=== PATIENT | male | born 1980 | race Caucasian/White ===

== ENCOUNTER 2017-01-21 05:12 | Emergency (ER) | payer BC ==
--- NOTE | 2017-01-21 05:22 | CPEKG ---
Heart Rate: 55 RR Interval: 1091 P-R Interval: 156 QRSD Interval: 94 QT Interval: 432 QTC Interval: 414 P Almo: 2 QRS Almo: 23 T Wave Almo: 0 EKG Severity - BORDERLINE ECG - EKG Impression: SINUS RHYTHM EKG Impression: PROBABLE LEFT ATRIAL ABNORMALITY Electronically Signed By: Med Mahoney 22-Jan-2017 09:04:21
[2017-01-21] MEDS ORDERED: ASPIRIN 81 MG CHEWABLE TAB ONE (05:23)
[2017-01-21 05:33] LABS: % IMMATURE GRANULYOCYTES 0.9 % (0.0-1.1); ABSOLUTE IMMATURE GRANULOCYTES 0.09 10^3/uL (0.00-0.10); ADD DIFF? NO; ADD MORPH? NO; ADD SCAN? NO; ATYPICAL LYMPHOCYTE FLAG 0 (0-99); FRAGMENT RBC FLAG 0 (0-99); HEMATOCRIT 46.2 % (40.0-51.0); HEMOGLOBIN 15.7 g/dL (13.7-17.5); LEFT SHIFT FLG 0 (0-99); LIPEMIA HEMOLYSIS FLAG 90 (0-99); MEAN CELL HEMOGLOBIN 29.7 pg (27.9-34.1); MEAN CELL VOLUME 87.5 fL (81.5-99.8); MEAN PLATELET VOLUME 9.3 fL (8.7-11.7); PLATELET CLUMPS FLAG 0 (0-99); PLATELET COUNT 327 10^3/uL (150-400); RED BLOOD CELL COUNT 5.28 10^6/uL (4.40-6.38); RED CELL DISTRIBUTION WIDTH 12.6 % (11.5-15.2)
[2017-01-21] MEDS ORDERED: MAG HYDROX/AL HYDROX/SIMETH 30 ML UDCUP PO ONE (05:35)
[2017-01-21] MEDS ORDERED: KETOROLAC 15 MG/1 ML SDV IVP ONE (05:36)
[2017-01-21] MEDS ORDERED: ASPIRIN 81 MG CHEWABLE TAB PO ONE (05:36)
[2017-01-21 05:46] LABS: ANION GAP 11 mEq/L (8-16); CALCIUM 9.8 mg/dL (8.5-10.4); CARBON DIOXIDE 25 mEq/l (22-31); CHLORIDE 108 mEq/L (97-110); CREATININE 0.9 mg/dL (0.7-1.3); GLOMERULAR FILTRATION RATE > 60; GLUCOSE 100 mg/dL (70-100); POTASSIUM 4.4 mEq/L (3.5-5.2); SODIUM 144 mEq/L (134-144)
[2017-01-21 05:58] LABS: TROPONIN I < 0.012 ng/mL (0-0.034)
[2017-01-21] MEDS ORDERED: IOPAMIDOL (ISOVUE 370) 100 ML BTL IV ONE (06:25)
--- NOTE | 2017-01-21 06:32 | EDPHY ---
H & P Stated Complaint: Chest pain woke from sleeping, family cardiac Hx Time Seen by Provider: 01/21/17 05:20 HPI/ROS: HPI The patient presents with chest pain which awoke him from sleep at about 4:00 a.m. this morning. The pain began in his lower sternum as a pressure like pain but then radiated to his right back and shoulder. This pain is sharp and shooting. The pain is been intermittent, is worse with change in position or deep breaths. It is not associated with any shortness of breath, nausea, vomiting, diaphoresis, dizziness. He has not had a cough or fever. He has not had pain like this before. Took Tums, however this did not improve his pain. He did have [place]imitri 7 hour car ride yesterday. He denies any history of DVT PE. His father had an AZ at age 54. REVIEW OF SYSTEMS Constitutional: No fever, no chills. Eyes: No discharge. ENT: No sore throat. Cardiovascular: No chest pain, no palpitations. Respiratory: No cough, no shortness of breath. Gastrointestinal: No abdominal pain, no vomiting. Genitourinary: No hematuria. Musculoskeletal: No back pain. Skin: No rashes. Neurological: No headache. PMHx: Healthy, had a nuclear stress test about 7 years ago which was normal Soc Hx: FHx: Father with AZ at 54 PHYSICAL General Appearance: Alert, some pain with changes in position Eyes: Pupils equal and round no pallor or injection ENT, Mouth: Mucous membranes moist Respiratory: There are no retractions, lungs are clear to auscultation Cardiovascular: Inferior sternum is tender to palpation, Regular rate and rhythm Gastrointestinal: Abdomen is soft and non-tender, no masses, bowel sounds normal Neurological: A&O, moves all extremities Skin: Warm and dry, no rashes Musculoskeletal: Neck is supple non tender Extremities: symmetrical, full range of motion Psychiatric: Patient is oriented X 3, there is no agitation Source: Patient Exam Limitations: No limitations - Personal History Current Tetanus/Diphtheria Vaccine: Yes Current Tetanus Diphtheria and Acellular Pertussis (TDAP): Yes - Medical/Surgical History Hx Asthma: No Hx Chronic Respiratory Disease: No Hx Diabetes: No Hx Cardiac Disease: No Hx Renal Disease: No Hx Cirrhosis: No Hx Alcoholism: No Hx HIV/AIDS: No Hx Splenectomy or Spleen Trauma: No Other PMH: denies. Family cardiac Hx - Social History Smoking Status: Former smoker Constitutional: Initial Vital Signs Temperature (C) 36.6 C 01/21/17 05:15 Heart Rate 60 01/21/17 05:15 Respiratory Rate 18 01/21/17 05:15 Blood Pressure 165/105 H 01/21/17 05:15 O2 Sat (%) 97 01/21/17 05:15 O2 Delivery Mode Room Air O2 (L/minute) 2 Allergies/Adverse Reactions: Penicillins Allergy (Verified 01/21/17 05:25) Home Medications: Medication Instructions Recorded NK [No Known Home Meds] 01/21/17 Medical Decision Making - Diagnostics EKG Interpretation: EKG: Complete interpretation has been separately recorded in the [employer] archive. Summary impression: Normal sinus rhythm Imaging: Chest x-ray one view shows no cardiomegaly, no effusion, no pneumothorax, interpreted by me, radiology interpretation is pending. CT scan of chest with IV contrast demonstrates no pulmonary embolism, otherwise unremarkable, discussed with Dr. Pena of Radiology. ED Course/Re-evaluation: In the emergency room, labs, EKG, chest x-ray were all checked. He was given Maalox and Toradol for his pain. His D-dimer was positive. I had discussion with him about pulmonary embolism and we will proceed with CT scan of his chest. CT scan was performed which showed no pulmonary embolism. The patient's pain improved while in the emergency room. Given the pleuritic nature and exacerbation with movement, this pain seems musculoskeletal to me or could also be related to pleurisy. I have discussed this with him. I have advised treatment with anti-inflammatories. He will be discharged from the emergency room. 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 Differential Diagnosis: This is a 36-year-old healthy man who presents from home with about 1.5 hours of chest pain which awoke him from sleep. The pain is worse with changes in position and deep breaths. There are no other associated features. He does have a strong family history of CAD. Differential diagnosis includes AZ, PE, aortic dissection, pneumothorax, musculoskeletal pain, GERD. - Data Points Laboratory Results: Laboratory Results 01/21/17 05:20 01/21/17 05:20 04/01/0401/21/17 01/21/17 05:20 05:20 05:20 WBC 9.48 10^3/uL 10^3/uL (3.80-9.50) RBC 5.28 10^6/uL 10^6/uL (4.40-6.38) Hgb 15.7 g/dL g/dL (13.7-17.5) Hct 46.2 % % (40.0-51.0) MCV 87.5 fL fL (81.5-99.8) MCH 29.7 pg pg (27.9-34.1) MCHC 34.0 g/dL g/dL (32.4-36.7) RDW 12.6 % % (11.5-15.2) Plt Count 327 10^3/uL 10^3/uL (150-400) MPV 9.3 fL fL (8.7-11.7) Neut % (Auto) 42.4 % % (39.3-74.2) Lymph % (Auto) 46.5 % H % (15.0-45.0) Bond % (Auto) 8.4 % % (4.5-13.0) Eos % (Auto) 1.4 % % (0.6-7.6) Baso % (Auto) 0.4 % % (0.3-1.7) Nucleat RBC Rel Count 0.0 % % (0.0-0.2) Absolute Neuts (auto) 4.01 10^3/uL 10^3/uL (1.70-6.50) Absolute Lymphs (auto) 4.41 10^3/uL H 10^3/uL (1.00-3.00) Absolute Monos (auto) 0.80 10^3/uL 10^3/uL (0.30-0.80) Absolute Eos (auto) 0.13 10^3/uL 10^3/uL (0.03-0.40) Absolute Basos (auto) 0.04 10^3/uL 10^3/uL (0.02-0.10) Absolute Nucleated RBC 0.00 10^3/uL 10^3/uL (0-0.01) Immature Gran % 0.9 % % (0.0-1.1) Immature Gran # 0.09 10^3/uL 10^3/uL (0.00-0.10) D-Dimer 1.14 ug/mLFEU H ug/mLFEU (0.00-0.50) Sodium 144 mEq/L mEq/L (134-144) Potassium 4.4 mEq/L mEq/L (3.5-5.2) Chloride 108 mEq/L mEq/L (97-110) Carbon Dioxide 25 mEq/l mEq/l (22-31) Anion Gap 11 mEq/L mEq/L (8-16) BUN 14 mg/dL mg/dL (7-23) Creatinine 0.9 mg/dL mg/dL (0.7-1.3) Estimated GFR > 60 Glucose 100 mg/dL mg/dL (70-100) Calcium 9.8 mg/dL mg/dL (8.5-10.4) Troponin I < 0.012 ng/mL ng/mL (0-0.034) Medications Given: Discontinued Medications Al Hydroxide/Mg Hydroxide (Maalox Susp) 30 ml PO EDNOW ONE Stop: 01/21/17 05:36 Last Admin: 01/21/17 05:40 Dose: 30 ml Aspirin (Aspirin) 324 mg PO EDNOW ONE Stop: 01/21/17 05:37 Last Admin: 01/21/17 05:36 Dose: 324 mg Ketorolac Tromethamine (Toradol) 15 mg IVP EDNOW ONE Stop: 01/21/17 05:37 Last Admin: 01/21/17 05:40 Dose: 15 mg Departure - Departure Disposition: Home, Routine, Self-Care Clinical Impression: Chest pain Qualifiers: Chest pain type: unspecified Qualified Code(s): R07.9 - Chest pain, unspecified Condition: Good Instructions: Chest Pain (ED) Additional Instructions: Please return to the emergency room if your worse in any way. I recommend that you take ibuprofen or Tylenol as needed for this pain. Please follow-up with your flatwork finisher for repeat stress testing. Referrals: NONE *PRIMARY CARE P,. [Primary Care Provider] - As per Instructions
[2017-01-21 07:18] VITALS: BP 138/95; PULSE 63; RESP 17; TEMP 97.7; O2SAT 98
== END 2017-01-21 07:23 | disposition home or self-care (01) ==
DX: R07.89 Other chest pain (principal); Z87.891 Personal history of nicotine dependence
CPT/HCPCS: 96374; J1885; Q9967

== ENCOUNTER → 2018-04-30 | Outpatient (CLI) | payer BC | LOC: BMCIMAGING 08:26 | PROVIDERS: ATTEND Physician Assistant | DX: M25.551 Pain in right hip (principal); M25.561 Pain in right knee ==

== ENCOUNTER → 2019-04-16 | Outpatient (CLI) | payer BC | LOC: BMCIMAGING 16:06 ==